=== PATIENT | female | born 1965 | race African-American/Black ===

== ENCOUNTER 2016-12-24 13:14 | Emergency (ER) | payer OTHER ==
--- NOTE | 2016-12-24 13:36 | ED GI/GU/ABDOMINAL COMPLAINT ---
History of Present Illness General Chief Complaint: Abdominal Pain/Flank Pain Stated Complaint: ABD PAIN Source: patient, old records Exam Limitations: no limitations Vital Signs & Intake/Output Vital Signs & Intake/Output ED Intake and Output 12/25 0000 12/24 1200 Intake Total 0 Output Total Balance 0 Intake, IV 0 Allergies Coded Allergies: MDX - Penicillin (PENICILLIN) (Mild, RASH 10/01/11) Reconcile Medications Ciprofloxacin HCl (Cipro) 500 MG TABLET 1 TAB PO BID uti Triage Note: TRIAGE; PT TO ED C/O LOWER ABD PAIN SINCE THURSDAY. DENIES ANY N/V. STATES SHE HAS PRESSURE WITH URINATION. WENT TO [facility] YEST[facility]DAY AND WAS STARTED ON BACTRIM BUT STATES IT IS NOT HELPING. Triage Nurses Notes Reviewed? yes ? N Is pt currently ? No Onset: Abrupt Duration: day(s): (1), constant Timing: recent history Quality/Severity: aching, cramping Severity Numbers: 5 Location: suprapubic Radiation: no radiation Activities at Onset: none Prior Abdominal Problems: similar symptoms No Modifying Factors: none Associated Symptoms: dysuria HPI: 51-year-old female presents to ER for evaluation complaining of suprapubic abdominal pain cramping in nature associated with urinary frequency urgency dysuria for the past 2 days. She went to an urgent care yesterday who diagnosed with a UTI was started on Bactrim. Patient has history of frequent UTIs, she states 3 weeks ago she went to her urologist at [facility] and had similar symptoms she was started on Bactrim the symptoms resolve. Her abdominal surgeries significant for and appendectomy. There is no modifying factors the pain is nonradiating no recent trauma or heavy lifting. She denies any vaginal bleeding or discharge she is not taken anything for her pain. No nausea no vomiting no diarrhea no hematuria (VINCENZO SMITH) Past History Travel History Traveled to [place] past 21 day No Medical History Any Pertinent Medical History? see below for history Surgical History Surgical History: appendectomy, , LUMBAR FUSION Psychosocial History Who do you live with Family What is your primary language Norwegian Tobacco Use: Never used Family History Hx Contributory? No (VINCENZO SMITH) Review of Systems Review of Systems Constitutional: Reports: see HPI. All Other Systems: Reviewed and Negative Comments Review of systems: See HPI, All other systems negative. Constitutional, no chills no fever, no malaise HEENT: No visual changes no sore throat no congestion Cardiovascular: No chest pain , no palpitation Skin: no rashes, no change in skin Respiratory: No dyspnea no cough no sputum GI: No nausea no vomiting, no diarrhea, no bloating/constipation : dysuria No hematuria, frequency, no discharge Muscle skeletal: No joint pain, no joint swelling, no back pain, no neck pain, Neurologic: no headache Psych: No stress Heme/endocrine: No bruising Immunology: No lymphadenopathy (VINCENZO SMITH) Physical Exam Physical Exam General Appearance: well developed/nourished, no apparent distress, alert Gastrointestinal: normal bowel sounds, soft, non-tender Comments: Well-developed well-nourished person in no acute distress HEENT: Normal EENT exam; PERRL, EOMI, HEAD is atraumatic. moist mucous membranes. Neck: Supple, normal range of motion Back: Nontender, no CVA tenderness. Full range of motion Cardiovascular: Regular rate and rhythms no murmurs rubs Respiratory: No respiratory distress. Patient speaking in full complete sentences. Breath sounds clear to auscultation bilaterally: NO W/R/R Abdomen: Soft, nontender nondistended, no appreciable organomegaly. Normal bowel sounds. No rebound/guarding Extremity: No edema, full range of motion of extremities Neuro: Alert oriented x3, motor sensory normal, There were no obvious focal neurologic abnormalities. Skin: No appreciable rash on exposed skin, skin is warm and dry. Psych: Mood and affect is normal, memory and judgment is normal. Core Measures ACS in differential dx? No Severe Sepsis Present: No Septic Shock Present: No (VINCENZO SMITH) Progress Differential Diagnosis: biliary colic, bowel obstruction, colon cancer, cholecystitis, gastritis, hepatitis, hernia, inflamm bowel dis, kidney stone, ovarian cyst, ovarian torsion, pancreatitis, peptic ulcer, PUD/GERD, UTI/pyelo, MALIGNANCY Plan of Care: Orders Procedure Date/time Status CULTURE,URINE 12/24 1332 Active URINALYSIS 12/24 1332 Complete LIPASE 12/24 1332 Complete COMPREHENSIVE METABOLIC PANEL 12/24 1332 Complete CBC WITHOUT DIFFERENTIAL 12/24 133 Complete AMYLASE 12/24 1332 Complete Laboratory Tests 12/24/16 1348: Urine Color YEL, Urine Clarity HAZY H, Urine pH 6.0, Ur Specific [place] >= 1.030, Urine Protein 30 H, Urine Ketones TRACE H, Urine Nitrite POS H, Urine Bilirubin NEG, Urine Urobilinogen 1.0, Ur Leukocyte Esterase TRACE H, Ur Microscopic SEDIMENT EXAMINED, Urine RBC 1-3, Urine WBC 5-10 H, Ur Epithelial Cells MOD H, Urine Bacteria MANY H, Urine Hemoglobin TRACE-LYSED, Urine Glucose NEG 12/24/16 1342: Anion Gap 12, Estimated GFR 52 L, BUN/Creatinine Ratio 10.9, Glucose 143 H, Calcium 9.7, Total Bilirubin 0.5, AST 25, ALT 35, Alkaline Phosphatase 83, Total Protein 7.1, Albumin 4.2, Globulin 2.9, Albumin/Globulin Ratio 1.4, Amylase 96, Lipase 212, CBC w Diff NO MAN DIFF REQ, RBC 4.00 L, MCV 87.1, MCH 29.1, RDW 15.0 H, MPV 8.7, Gran % 69.4, Lymphocytes % 23.8, Monocytes % 5.3, Eosinophils % 1.0, Basophils % 0.5, Absolute Granulocytes 3.7, Absolute Lymphocytes 1.3, Absolute Monocytes 0.3, Absolute Eosinophils 0.1, Absolute Basophils 0, PUBS MCHC 33.4 Microbiology 12/24 1348 URINE ROUT: Urine Culture - RECD Patient declining anything*than ibuprofen for pain labs CAT scan ordered case discussed with Dr. Spaulding Repeat evaluation patient is resting in no apparent distress I discussed with the patient at length all of their results. I had an extensive conversation regarding need for close follow up with their primary care physician this week as well as return precautions. I answered all of their questions, they feel comfortable with the plan and follow-up care. I discussed with the patient/family the medications that they will receive. I gave them signs and symptoms that could indicate an adverse reaction. I have advised them to limit their activities until they can see how they respond to the medication. (MILE MATA,VINCENZO) Diagnostic Imaging: Viewed by Me: CT Scan. Discussed w/RAD: CT Scan. Radiology Impression: PATIENT: SHOAIB HOPKINS PRESENT AGE: 51 PATIENT ACCOUNT NO: [id number] : 63 LOCATION: [facility] ORDERING PHYSICIAN: VINCENZO MATA SERVICE DATE: 12/24/16 EXAM TYPE: CAT - CT ABD & PELVIS W/O IV CONTRAS EXAMINATION: CT ABDOMEN AND PELVIS WITHOUT CONTRAST CLINICAL INFORMATION: Periumbilical and flank pain COMPARISON: 10/01/2011. TECHNIQUE: Multidetector volumetric imaging was performed from the superior aspect of the liver through the pubic symphysis. Sagittal and coronal reformatted images were obtained on the technologist's workstation. DLP: 764 mGy -cm FINDINGS: LUNG BASES: Unremarkable. LIVER AND SPLEEN: Unremarkable. PANCREAS GALLBLADDER AND BILIARY TREE: Unremarkable. KIDNEYS, URETERS, AND ADRENALS: There is a 5.5 cm cyst in the lower pole of the right kidney. There is no evidence of urolithiasis or hydroureteronephrosis. Adrenal glands are normal appearing. URINARY BLADDER: Collapsed limiting evaluation, however unremarkable. GI TRACT: There are a few scattered left-sided colonic diverticula without evidence of acute diverticulitis. Colon is stool-filled. There is a stable lines base of the cecum suggesting previous appendectomy. PERITONEAL CAVITY: There is no intraperitoneal free fluid, masses, or adenopathy. RETROPERITONEUM: Unremarkable PELVIC ORGANS: Unremarkable. OSSEOUS STRUCTURES: Unremarkable. ANTERIOR ABDOMINAL WALL AND SOFT TISSUES: There is a moderate-sized periumbilical hernia containing only mesenteric fat without associated inflammatory changes to suggest strangulation or incarceration. There is a small indirect right inguinal hernia containing only mesenteric fat. IMPRESSION: Small left renal cyst, no evidence of hydroureteronephrosis or urolithiasis. 2. Left sided colonic diverticulosis, no evidence of diverticulitis. 3. Probable post appendectomy changes. 4. Moderate sized periumbilical hernia and small right inguinal hernias. DICTATED BY: ELIANA KELLY MD DATE/TIME DICTATED:12/24/161423 GENERAL SERVICE TECHNICIAN:LO DATE/TIME TRANSCRIBED:12/24/161423 CONFIDENTIAL, DO NOT COPY WITHOUT APPROPRIATE AUTHORIZATION. <Electronically signed in Other Vendor System> SIGNED BY: ELIANA KELLY MD 12/24/16 1446 Initial ED EKG: none (VINCENZO SMITH) Departure Departure Time of Disposition: 145 Disposition: HOME OR SELF CARE Condition: Stable Clinical Impression Primary Impression: Abdominal pain Secondary Impressions: Diverticulosis, Inguinal hernia, Periumbilical hernia, Renal cyst, UTI (urinary tract infection) Referrals: EVE ZAPATA M.D. (PCP/Family) Additional Instructions: Follow-up with your urologist tomorrow as discussed Cipro as directed stop taking the Bactrim Tylenol or ibuprofen for pain. Return to ER anytime sooner with any concerns. This was sent to your pharmacy Departure Forms: Customer Survey General Discharge Information Prescriptions: Current Visit Scripts Ciprofloxacin HCl (Cipro) 1 TAB PO BID #14 TAB (MILE MATA,VINCENZO) PA/LEAN FACILITATOR Co-Sign Statement Statement: ED Attending supervision documentation- [] I saw and evaluated the patient. I have also reviewed all the pertinent lab results and diagnostic results. I agree with the findings and the plan of care as documented in the PA's/LEAN FACILITATOR's documentation. [X] I have reviewed the ED Record and agree with the PA's/LEAN FACILITATOR's documentation. [] Additions or exceptions (if any) to the PAs/LEAN FACILITATOR's note and plan are summarized below: [] (NICKIE RILEY,ISH Freeman)
[2016-12-24 13:50] LABS: ABSOLUTE BASOPHIL COUNT 0 /CUMM (0.0-0.2); ABSOLUTE EOSINOPHIL COUNT 0.1 /CUMM (0.0-0.7); ABSOLUTE GRANULOCYTE CT 3.7 /CUMM (1.4-6.5); ABSOLUTE LYMPH COUNT 1.3 /CUMM (1.2-3.4); ABSOLUTE MONOCYTE COUNT 0.3 /CUMM (0.10-0.60); BASOPHIL % 0.5 % (0.0-2.0); GRANULOCYTE % 69.4 % (42.2-75.2); HEMATOCRIT 34.9 % (37-47); MEAN CORPUSCULAR HGB 29.1 PG (27.0-31.0); MEAN CORPUSCULAR HGB CONC 33.4 G/DL (33.0-37.0); MEAN CORPUSCULAR VOLUME 87.1 FL (81.0-99.0); MEAN PLATELET VOLUME 8.7 FL (7.4-10.4); PLATELET COUNT 278 /CUMM (130-400); WHITE BLOOD CELL COUNT 5.3 /CUMM (4.8-10.8)
[2016-12-24 14:43] VITALS: BP 126/58
--- NOTE | 2016-12-24 14:46 | CT SCAN REPORT ---
EXAMINATION: CT ABDOMEN AND PELVIS WITHOUT CONTRAST CLINICAL INFORMATION: Periumbilical and flank pain COMPARISON: 10/01/2011. TECHNIQUE: Multidetector volumetric imaging was performed from the superior aspect of the liver through the pubic symphysis. Sagittal and coronal reformatted images were obtained on the technologist's workstation. DLP: 764 mGy-cm FINDINGS: LUNG BASES: Unremarkable. LIVER AND SPLEEN: Unremarkable. PANCREAS GALLBLADDER AND BILIARY TREE: Unremarkable. KIDNEYS, URETERS, AND ADRENALS: There is a 5.5 cm cyst in the lower pole of the right kidney. There is no evidence of urolithiasis or hydroureteronephrosis. Adrenal glands are normal appearing. URINARY BLADDER: Collapsed limiting evaluation, however unremarkable. GI TRACT: There are a few scattered left-sided colonic diverticula without evidence of acute diverticulitis. Colon is stool-filled. There is a stable lines base of the cecum suggesting previous appendectomy. PERITONEAL CAVITY: There is no intraperitoneal free fluid, masses, or adenopathy. RETROPERITONEUM: Unremarkable PELVIC ORGANS: Unremarkable. OSSEOUS STRUCTURES: Unremarkable. ANTERIOR ABDOMINAL WALL AND SOFT TISSUES: There is a moderate-sized periumbilical hernia containing only mesenteric fat without associated inflammatory changes to suggest strangulation or incarceration. There is a small indirect right inguinal hernia containing only mesenteric fat. IMPRESSION: Small left renal cyst, no evidence of hydroureteronephrosis or urolithiasis. 2. Left sided colonic diverticulosis, no evidence of diverticulitis. 3. Probable post appendectomy changes. 4. Moderate sized periumbilical hernia and small right inguinal hernias.
[2016-12-24] MEDS ORDERED: CIPRO500 M1 PO (14:55)
== END 2016-12-24 15:28 ==
LOC: ERH 13:14
PROVIDERS: Physician Assistant Medical
DX: K57.90 Diverticulosis of intestine, part unspecified, without perforation or abscess without bleeding (principal); K40.90 Unilateral inguinal hernia, without obstruction or gangrene, not specified as recurrent; K42.9 Umbilical hernia without obstruction or gangrene
CPT/HCPCS: 74176; 81001; 87086